=== PATIENT | male | born 1940 | race Hispanic/Latino ===

== ENCOUNTER 2021-02-18 06:14 | Day surgery (SDC) | payer OTHER, MEDICARE ==
[2021-02-18] VITALS (7 sets, daily range): BP systolic 116–161; BP diastolic 61–82
[~2021-02-18] VITALS: Ht 152.4 cm; Wt 40.8 kg
[~2021-02-18 06:14] MED LIST: ASPI-1443 PO; DONE5TAB33 PO; LISI20TA24 PO; PANT20TA18 PO
[2021-02-18] MEDS ORDERED: 0.9%NACL 1000ML 1,000 ML IV ONE (06:21)
[2021-02-18] MEDS ORDERED: PROPOFOL 10 MG/ML 20ML VIAL IV ONE (08:34)
== END 2021-02-18 09:25 ==
LOC: DAH 06:14 → ENDO 06:14
PROVIDERS: ATTEND Internal Medicine
DX: R63.0 Anorexia (principal); R14.2 Eructation; K22.89 Other specified disease of esophagus; K31.89 Other diseases of stomach and duodenum; I10 Essential (primary) hypertension; R63.4 Abnormal weight loss; K44.9 Diaphragmatic hernia without obstruction or gangrene; B19.10 Unspecified viral hepatitis B without hepatic coma; Z86.73 Personal history of transient ischemic attack (TIA), and cerebral infarction without residual deficits; Z79.82 Long term (current) use of aspirin; Z79.899 Other long term (current) drug therapy; Z20.822 Contact with and (suspected) exposure to COVID-19
CPT/HCPCS: 43239; 87635; 88305; 88342; 93005; A4215 ×2; A4221; A4222; A4223; A4606; A4620; A4657; A4663; C9803; J2704; J7030